=== PATIENT | female | born 1970 | race Caucasian/White ===

== ENCOUNTER 2021-10-17 13:58 | Emergency (ER) | payer MEDICAID ==
[~2021-10-17] VITALS: Ht 157.5 cm; Wt 74.8 kg
[2021-10-17 14:06] VITALS: BP 125/87
[2021-10-17] MEDS ORDERED: NACL 0.9% 1,000 ML IV ONE (14:30)
[2021-10-17 15:17] LABS: BASOPHILS # (AUTO) 0.1 K/uL (0.00-0.22); BASOPHILS % (AUTO) 0.9 % (0.0-2.0); EOSINOPHILS # (AUTO) 0.1 K/uL (0-0.4); EOSINOPHILS % (AUTO) 0.6 % (0.0-4.0); HEMATOCRIT 38.3 % (36-48); HEMOGLOBIN 12.7 g/dL (12.0-16.0); LYMPHOCYTES # (AUTO) 1.6 K/uL (2.5-16.5); LYMPHOCYTES % (AUTO) 14.7 % (20.5-51.1); MEAN CORPUSCULAR HEMOGLOBIN 30 pg (27-31); MEAN CORPUSCULAR HGB CONC 33 g/dL (33-37); MONOCYTES # (AUTO) 0.5 K/uL (0.8-1.0); NEUTROPHILS # (AUTO) 8.3 K/uL (1.8-7.7); NEUTROPHILS % (AUTO) 78.8 % (42.2-75.2); PLATELET COUNT (AUTO) 327 K/uL (140-450); WHITE BLOOD COUNT (AUTO) 10.6 K/uL (4.8-10.8)
[2021-10-17 15:25] LABS: ANION GAP 10.5 (8-16); CARBON DIOXIDE 28.4 mmol/L (21-32); CREATININE 0.9 mg/dL (0.6-1.3); POTASSIUM 3.9 mmol/L (3.5-5.1)
--- NOTE | 2021-10-17 15:55 | NUR ---
51YO FEMALE PT BIBA FROM STREET DUE TO UNWITNESSED SYNCOPE. PT STATES WALKING TO JOB INTERVIEW IN HEAT WITHOUT PROTECTION, UNSURE FOR HOW LONG. PT STATES WAKING UP ON FLOOR ON HER SIDE AND WAS ASSISTED TO SIT UP BY RANDOM WALKER. UPON REGAINING CONSIOUSNESS, PT REPORTS 6/10 THROBBING HEADACHE AND 8/10 BODY ACHES. STATES MOST PAIN IN BACK OF HEAD AND TEMPLES. DENIES CHEST PAIN, SOB , OR N/V/D. PT PRESENTS WITH NO VISIBLE INJURIES , AAOX4 WITH RESPIRATIONS EVEN AND UNLABORED. SKIN WARM TO TOUCH AND FLUSHED HX: ALCOHOLIC ALLERGIES: CODEINE
[2021-10-17] MEDS ORDERED: KETOROLAC 30 MG/ML VIAL IVP ONE (16:40)
[2021-10-17] MEDS ORDERED: IBUP-2213 PO (17:23)
[2021-10-17 18:30] VITALS: BP 129/87
--- NOTE | 2021-10-17 18:34 | NUR ---
Patient discharged with v/s stable. Written and verbal after care instructions FOR GENERAL HEADACHE AND SYNCOPE given and explained. Patient alert, oriented and verbalized understanding of instructions. Ambulatory with steady gait. All questions addressed prior to discharge. ID band removed. Patient advised to follow up with PMD. Rx of IBUPROFEN given. Opportunity to ask questions provided and answered. PROVIDED WITH UBER RIDE TO [id number] [id number]
--- NOTE | 2021-10-17 18:35 | NUR ---
Chart checked and completed. The patient's care was reviewed and supervised by Ciara Carter RN.
== END 2021-10-17 18:34 | disposition home or self-care (01) ==
LOC: MED 13:58
DX: R55 Syncope and collapse (principal); R51.9 Headache, unspecified; I10 Essential (primary) hypertension; F17.200 Nicotine dependence, unspecified, uncomplicated; Z88.5 Allergy status to narcotic agent
CPT/HCPCS: 36415; 80048; 85025; 93005; 96361; 96374; 99285; J1885

== ENCOUNTER 2021-11-21 15:39 | Emergency (ER) | payer MEDICAID ==
[~2021-11-21] VITALS: Ht 157.5 cm; Wt 79.8 kg
[~2021-11-21 15:39] MED LIST: IBUP-2213 PO
[2021-11-21 15:44] VITALS: BP 144/92
--- NOTE | 2021-11-21 16:05 | NUR ---
PT AMBULATORY W/ STEADY GAIT TO BED 8
--- NOTE | 2021-11-21 16:13 | NUR ---
51YO FEMALE PT C/O ALCOHOL WITHDRAWAL XTODAY. PT STATES SHE HAS PENDING DETOX SCHEDULED FOR TOMORROW AND WAS TOLD BY DETOX PROGRAM TO COME TO ER FOR CHECK UP. PT LAST DRANK A "COFFEE CUP" WORTH OF VODKA THIS MORNING AND STATES FEELING MILD WITHDRAWLS AT ARRIVAL. PT STATES THE MOST SHES GONE WITHOUT DRINKING IS 1-2 HRS. REPORTS CURRENT CHEST PALPITATIONS W/ NO RADIATION. PT DENIES CHEST PAIN, DIZZINESS , N/V/D OR SOB. PT AAOX4, NO VISIBLE DISTRESS. RESPIRATIONS EVEN AND UNLABORED. SKIN WARM AND FLUSHED. PT PUT ON SLOT TAG INSERTER. BED AT LOWEST POSITION, BED RAILS UP X2 W/ SEIZURE PADS IN PLACE HX: ALCOHOLISM ALLERGIES: CODEINE
--- NOTE | 2021-11-21 16:22 | NUR ---
LIZA STEARNS AT BEDSIDE FOR EVALUATION
--- NOTE | 2021-11-21 16:30 | NUR ---
pt provided w/ food and encouraged to give urine sample
--- NOTE | 2021-11-21 16:33 | NUR ---
LAB AT BEDSIDE
--- NOTE | 2021-11-21 16:43 | NUR ---
PT AMBULATORY TO RESTROOM
--- NOTE | 2021-11-21 16:45 | NUR ---
PT AMBULATED BACK TO ROOM
[2021-11-21 16:46] LABS: BASOPHILS # (AUTO) 0.1 K/uL (0.00-0.22); EOSINOPHILS % (AUTO) 0.7 % (0.0-4.0); HEMOGLOBIN 12.4 g/dL (12.0-16.0); LYMPHOCYTES # (AUTO) 2.1 K/uL (2.5-16.5); LYMPHOCYTES % (AUTO) 30.9 % (20.5-51.1); MEAN CORPUSCULAR HEMOGLOBIN 29 pg (27-31); MEAN CORPUSCULAR HGB CONC 33 g/dL (33-37); MEAN CORPUSCULAR VOLUME 88.5 fL (80-94); MONOCYTES # (AUTO) 0.6 K/uL (0.8-1.0); MONOCYTES % (AUTO) 8.6 % (1.7-9.3); NEUTROPHILS % (AUTO) 58.8 % (42.2-75.2); PLATELET COUNT (AUTO) 272 K/uL (140-450); RED CELL DISTRIBUTION WIDTH 14.5 % (11.6-13.7); WHITE BLOOD COUNT (AUTO) 6.9 K/uL (4.8-10.8)
[2021-11-21 17:03] LABS: ALBUMIN 3.9 g/dL (3.4-5.0); ANION GAP 16.3 (8-16); ASPARTATE AMINOTRANSFERASE 33 U/L (15-37); CARBON DIOXIDE 24.4 mmol/L (21-32); CHLORIDE 100 mmol/L (98-107); CREATININE 1.1 mg/dL (0.6-1.3); GFR ARICAN-AMERICAN 67 mL/min (>90); GLUCOSE 99 mg/dL (74-106); POTASSIUM 3.7 mmol/L (3.5-5.1); SODIUM SERUM 137 mmol/L (136-145); TOTAL BILIRUBIN 0.3 mg/dL (0.0-1.0); UREA NITROGEN, BLOOD 27 mg/dL (7-18)
--- NOTE | 2021-11-21 17:07 | NUR ---
PT SWABBED FOR COVID(VICENTE).HANDED TO CARTON STAMPER
[2021-11-21 17:08] LABS: ACETAMINOPHEN < 0.5 ug/ml (10-30); SALICYLATE < 2.8 mg/dL (2.8-20.0)
--- NOTE | 2021-11-21 17:51 | NUR ---
51/F BROUGHT INTO ED FOR ALCOHOL WITHDRAWAL TODAY. PATIENT BROUGHT BY STAFF MEMBER FROM A DETOX CENTER IN WHICH PATIENT WAS SCHEDULED TO BE PLACED INTO TOMORROW. PATIENT REPORTS SHE HAD A "MUG WORTH OF VODKA" TODAY AND STATES SHE DRINKS EVERY TWO HOURS. PATIENT REPORTS HX OF SEIZURES D/T WITHDRAWALS AND STATES SHE FELT LIKE SHE WAS WITHDRAWING TODAY. PATIENT REPORTS PALPITATIONS, DENIES CP, DIZZINESS, VISION CHANGES. 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
[2021-11-21 18:11] LABS: BARBITURATE, URINE NEGATIVE ng/ml (NEG <=200); BENZODIAZEPINE, URINE NEGATIVE ng/mL (NEG <=200); CANNABINOID, URINE NEGATIVE ng/mL (NEG <=50); COCAINE, URINE NEGATIVE ng/mL (NEG <=300); OPIATE, URINE NEGATIVE ng/mL (NEG <=2000); PHENCYCLIDINE SCREEN,URINE NEGATIVE ng/mL (NEG <=25)
--- NOTE | 2021-11-21 18:14 | NUR ---
PT AMBULATORY TO RESTROOM
--- NOTE | 2021-11-21 18:16 | NUR ---
PT AMBULATORY BACK TO ROOM
[2021-11-21] MEDS ORDERED: ACETAMINOPHEN EXTRA STRENGTH 500 MG TAB PO ONE (18:35)
[2021-11-21 18:57] VITALS: BP 137/85
--- NOTE | 2021-11-21 18:57 | NUR ---
Patient discharged with v/s stable. Written and verbal after care instructions FOR ALCOHOL DISORDER AND INTOXICATION given and explained. Patient verbalized understanding. Ambulatory with steady gait. All questions addressed prior to discharge. Advised to follow up with PMD. ALCOHOLISM RESOURCES PROVIDED
--- NOTE | 2021-11-21 19:00 | NUR ---
The patient's care was reviewed and supervised by Riya Valles RN.
[2021-11-21 20:54] LABS: BILIRUBIN,URINE NEGATIVE (NEGATIVE); BLOOD, URINE 1+ (NEGATIVE); COLOR,URINE YELLOW (YELLOW); LEUKOCYTE ESTERASE ,URINE 1+ (NEGATIVE); NITRITE, URINE NEGATIVE (NEGATIVE); UGLUCOSE NEGATIVE (NEGATIVE)
[2021-11-21 20:56] LABS: APPEARANCE,URINE HAZY (CLEAR)
[2021-11-21 21:12] LABS: RBC,URINE NONE SEEN /HPF (0-5); WBC,URINE 20-60 /HPF (0-5)
== END 2021-11-21 18:57 | disposition home or self-care (01) ==
LOC: MED 15:39
DX: F10.10 Alcohol abuse, uncomplicated (principal); Z20.822 Contact with and (suspected) exposure to COVID-19; I10 Essential (primary) hypertension; F17.210 Nicotine dependence, cigarettes, uncomplicated; F15.90 Other stimulant use, unspecified, uncomplicated; Z79.899 Other long term (current) drug therapy; Z88.5 Allergy status to narcotic agent; Z98.890 Other specified postprocedural states
CPT/HCPCS: 36415; 80053; 80305; 81001; 81025; 85025; 87086; 87426; 99285; G0480; G0482

== ENCOUNTER 2021-11-24 13:04 | Emergency (ER) | payer MEDICAID ==
[~2021-11-24] VITALS: Ht 160 cm; Wt 81.6 kg
[2021-11-24 13:06] VITALS: BP 156/104
--- NOTE | 2021-11-24 13:09 | NUR ---
PT BIBA TO BED 08.
--- NOTE | 2021-11-24 13:10 | NUR ---
DR STEARNS AT BEDSIDE EVALUATING PT
[2021-11-24] MEDS ORDERED: NACL 0.9% 1,000 ML IV ONE (13:15)
--- NOTE | 2021-11-24 13:30 | NUR ---
51YR OLD FEMALE BIB EMS PSYCH EVAL. PT FOUND ON SIDE OF FREEWAY BY UNDERPASS. UPON ARRIVAL, PT WAS DIRTY SMELLED OF ETOH. CUTS TO XIOMARA KNEES XIOMARA HANDS ON FINGER TIPS . SELF CUTTING WITH TUNA CAN. ABRASIONS TO L BUTTOCK. PT IS A&OX2. HX OF SCHZ BIPOLAR DENIES HARM TO OTHERS. DENIES CP OR SOB. PT IS GOWN IN BED WITH SIDE RAILS UP X2. SZ PADS ON BED RAILS. HX OF WITHDRAWL SZ ETOH. 20G IV CATH PLACED IN R AC. UNKNOWN SCHZ BIPOLAR NEUROPATHY
[2021-11-24 13:34] LABS: BASOPHILS % (AUTO) 0.2 % (0.0-2.0); HEMOGLOBIN 12.6 g/dL (12.0-16.0); LYMPHOCYTES # (AUTO) 0.9 K/uL (2.5-16.5); LYMPHOCYTES % (AUTO) 6.5 % (20.5-51.1); MEAN CORPUSCULAR HEMOGLOBIN 29 pg (27-31); MEAN CORPUSCULAR HGB CONC 33 g/dL (33-37); MEAN CORPUSCULAR VOLUME 86.9 fL (80-94); MONOCYTES # (AUTO) 0.8 K/uL (0.8-1.0); MONOCYTES % (AUTO) 5.7 % (1.7-9.3); NEUTROPHILS # (AUTO) 12.4 K/uL (1.8-7.7); NEUTROPHILS % (AUTO) 87.6 % (42.2-75.2); PLATELET COUNT (AUTO) 334 K/uL (140-450); RED BLOOD CELL COUNT(AUTO) 4.37 MIL/uL (4.20-5.40); WHITE BLOOD COUNT (AUTO) 14.2 K/uL (4.8-10.8)
--- NOTE | 2021-11-24 13:41 | NUR ---
BILATERAL ANTERIOR KNEES IRRIGATED DRESSED AND BANDAGED WITH NON ADHERENT DRESSING
[2021-11-24] MEDS ORDERED: ZIPRASIDONE MESYLATE 20 MG/ML VIAL IM ONE (14:00)
--- NOTE | 2021-11-24 14:08 | NUR ---
SPOKE WITH DR GUIDRY AT [facility] ([phone]). PER , SHE WOULD NEED TO BE MEDICALLY CLEARED WITH NO RISK FOR WITHDRAWAL SEIZURES IN ORDER TO GET PLACED ON THEIR FACILITY. DR STEARNS MADE AWARE.
[2021-11-24 14:12] LABS: ALBUMIN 4.4 g/dL (3.4-5.0); ANION GAP 26.2 (8-16); ASPARTATE AMINOTRANSFERASE 35 U/L (15-37); CARBON DIOXIDE 17.1 mmol/L (21-32); CHLORIDE 97 mmol/L (98-107); CREATININE 1.2 mg/dL (0.6-1.3); GFR ARICAN-AMERICAN 61 mL/min (>90); GLUCOSE 136 mg/dL (74-106); POTASSIUM 3.3 mmol/L (3.5-5.1); SALICYLATE 3.6 mg/dL (2.8-20.0); SODIUM SERUM 137 mmol/L (136-145); TOTAL BILIRUBIN 1.3 mg/dL (0.0-1.0); UREA NITROGEN, BLOOD 30 mg/dL (7-18)
[2021-11-24 14:13] LABS: ACETAMINOPHEN < 0.5 ug/ml (10-30)
[2021-11-24] MEDS ORDERED: POTASSIUM CHLORIDE 10 MEQ TABER PO ONE (14:15)
--- NOTE | 2021-11-24 15:23 | NUR ---
WALKED PT TO BATHROOM. NO URINE OUTPUT. URINE SPECIMAN NEEDED
--- NOTE | 2021-11-24 16:03 | NUR ---
PT IN BED WITH HOB ELEVATED. SIDE RAILS UP X2. BED AT LOWEST POSITION. RESP EVEN AND [id number].
--- NOTE | 2021-11-24 17:01 | NUR ---
WALKED PT TO BATHROOM. NO SUCCESS ON URINE SAMPLE. PT WALKED WITH A STEADY GAIT.
[2021-11-24] MEDS ORDERED: BACITRACIN OINT 500 UNITS/GM PKT TP ONE ×2 (17:16→17:20)
[2021-11-24 17:19] VITALS: BP 159/104
--- NOTE | 2021-11-24 17:38 | NUR ---
PT SITTING UP IN BED. DR STEARNS AT BEDSIDE FOR FURTHER EVALUATION. PT DENYING SI/HI AT THIS TIME. PT A/O X4.
--- NOTE | 2021-11-24 17:42 | NUR ---
ASKED PATIENT IF SHE HAD INTENTION OF SELF HARM OR HAVING THOUGHTS OF HARMING HERSELF. PATIENT IS SAID NO TWICE.
--- NOTE | 2021-11-24 19:01 | NUR ---
Patient discharged with v/s stable. Written and verbal after care instructions given and explained. Patient verbalized understanding. Ambulatory with steady gait. All questions addressed prior to discharge. Advised to follow up with PMD.
== END 2021-11-24 19:01 | disposition home or self-care (01) ==
LOC: MED 13:04
DX: F15.10 Other stimulant abuse, uncomplicated (principal); F10.10 Alcohol abuse, uncomplicated; I10 Essential (primary) hypertension; Z88.5 Allergy status to narcotic agent; Z79.899 Other long term (current) drug therapy; Z98.890 Other specified postprocedural states; Y90.0 Blood alcohol level of less than 20 mg/100 ml
CPT/HCPCS: 36415; 80053; 85025; 90471; 90715; 96360; 96372; 99284; G0480; G0482; J3486; J7030